=== PATIENT | male | born 1960 | race Caucasian/White ===

== ENCOUNTER 2020-05-07 15:43 | Emergency (ER) | payer OTHER ==
[~2020-05-07] VITALS: Ht 172.7 cm; Wt 113.4 kg
[2020-05-07] MEDS ORDERED: METFORMIN (16:00)
== END 2020-05-07 19:11 | disposition home or self-care (01) ==
LOC: ER 15:43 → CPU-OBS 16:18 → ER 16:18
DX: R07.89 Other chest pain (principal); M94.0 Chondrocostal junction syndrome [Tietze]
CPT/HCPCS: G0378; G0379; 93005